=== PATIENT | male | born 1975 | race Caucasian/White ===

== ENCOUNTER 2019-01-14 19:03 | Observation (INO) | payer OTHER ==
[~2019-01-14] VITALS: Ht 165.1 cm; Wt 80.7 kg
[2019-01-14] MEDS ORDERED: morphine 4 MG/ML VIAL IV STA (21:10)
--- NOTE | 2019-01-14 22:03 | ERD ---
ER Documentation Chief Complaint Chief Complaint lft sd cp [id number], hx of heart attack 1.5 yrs ago. +stress test today. HPI 43-year-old male with a history of hypertension and NE in June 2017 presenting with complaints of chest pain that started around 6:45 PM today. He had a stress test done earlier this morning with Dr. Browne. He does not know the results of this test. During the stress test, however he was asymptomatic. He states that he started getting substernal chest pressure that radiated to his left shoulder with associated shortness of breath lasting a few minutes. Improved with nitroglycerin. No associated diaphoresis or vomiting. No dizziness, focal weakness or numbness. He is unable to tell me exactly why he had an NE at an early age. But he denies getting an angiogram or having stents. He states he is on Plavix and multiple other medications for hypertension, hyperlipidemia. ROS All systems reviewed and are negative except as per history of present illness. Medications Home Meds Reported Medications Pantoprazole* (Pantoprazole*) 40 Mg Tablet.dr, 40 MG PO DAILY, TAB 01/15/19 Losartan Potassium* (Losartan Potassium*) 100 Mg Tablet, 100 MG PO DAILY, TAB 01/15/19 Clopidogrel Bisulfate* (Clopidogrel Bisulfate*) 75 Mg Tablet, 75 MG PO DAILY, #30 TAB 01/15/19 Ranolazine* (Ranexa*) 500 Mg Tab.sr.12h, 500 MG PO Q12, TAB 01/15/19 Atorvastatin Calcium* (Atorvastatin Calcium*) 20 Mg Tablet, 20 MG PO QHS, #30 TAB 01/15/19 Carvedilol* (Carvedilol*) 6.25 Mg Tablet, 6.25 MG PO DAILY, #60 TAB 01/15/19 Naproxen* (Naproxen*) 500 Mg Tablet, 500 MG PO BID PRN for PAIN LEVEL 1-5, TAB 01/15/19 Nitroglycerin* (Nitrostat*) 0.4 Mg Tab.subl, 0.4 MG SL Q5MIN PRN for CHEST PAIN, BOTTLE 01/15/19 Aspirin* (Aspirin* EC) 81 Mg Tablet.dr, 81 MG PO DAILY, TAB 01/15/19 Allergies Allergies: Coded Allergies: No Known Drug Allergy (Verified Allergy, Unknown, 01/14/19) PMhx/Soc History of Surgery: No Anesthesia Reaction: No Hx Neurological Disorder: No Hx Respiratory Disorders: No Hx Cardiac Disorders: Yes (heart attack ) Hx Psychiatric Problems: No Hx Miscellaneous Medical Probl: No Hx Alcohol Use: Yes (socially) Hx Substance Use: No (Denies any history of substance abuse) Hx Tobacco Use: No Smoking Status: Never smoker FmHx Family History: No coronary disease Physical Exam Vitals Vital Signs Date Temp Pulse Resp B/P (MAP) Pulse Ox O2 O2 Flow FiO2 Time Delivery Rate 01/14/19 97.7 94 24 124/72 99 19:09 (89) Physical Exam Const: No acute distress, well-appearing, nontoxic, no diaphoresis Head: Atraumatic Eyes: Normal Conjunctiva ENT: Normal External Ears, Nose and Mouth. Neck: Full range of motion. No meningismus. No JVD Chest wall: Left parasternal chest wall tenderness, does not re-create pain Resp: Clear to auscultation bilaterally Cardio: Regular rate and rhythm, no murmurs. 2+ distal pulses in all 4 extremities Abd: Soft, non tender, non distended. Normal bowel sounds Skin: No petechiae or rashes Back: No midline or flank tenderness Ext: No cyanosis, or edema Neur: Awake and alert Psych: Normal Mood and Affect Result Diagram: 01/14/19205101/14/192051 Results 24 hrs Laboratory Tests Test 01/14/19 20:52 White Blood Count 5.0 10^3/ul Red Blood Count 4.28 10^6/ul Hemoglobin 12.5 g/dl Hematocrit 37.6 % Mean Corpuscular Volume 87.9 fl Mean Corpuscular Hemoglobin 29.2 pg Mean Corpuscular Hemoglobin Concent 33.2 g/dl Red Cell Distribution Width 13.7 % Platelet Count 312 10^3/UL Mean Platelet Volume 11.4 fl Immature Granulocytes % 0.200 % Neutrophils % 50.4 % Lymphocytes % 30.6 % Monocytes % 9.1 % Eosinophils % 9.1 % Basophils % 0.6 % Nucleated Red Blood Cells % 0.0 /100WBC Immature Granulocytes # 0.010 10^3/ul Neutrophils # 2.5 10^3/ul Lymphocytes # 1.5 10^3/ul Monocytes # 0.5 10^3/ul Eosinophils # 0.5 10^3/ul Basophils # 0.0 10^3/ul Nucleated Red Blood Cells # 0.0 10^3/ul Sodium Level 140 mmol/L Potassium Level 4.0 mmol/L Chloride Level 106 mmol/L Carbon Dioxide Level 25 mmol/L Anion Gap 9 Blood Urea Nitrogen 16 mg/dl Creatinine 0.92 mg/dl Est Glomerular Filtrat Rate mL/min > 60 mL/min Glucose Level 95 mg/dl Calcium Level 9.0 mg/dl Troponin I 0.064 ng/ml Current Medications Medications Dose Sig/Kathryn Start Time Status Last (Trade) Ordered Route PRN Stop Time Admin Dose Reason Admin Morphine 4 mg ONCE STAT 01/14/19 DC 01/14/19 Sulfate IV 21:10 21:24 (morphine) 01/14/19 21:11 1 tab ONCE ONCE 01/14/19 DC 01/14/19 Nitroglycerin SL 22:30 22:50 01/14/19 22:31 (Nitroglyceri n (Sl Tab) 0.4 Mg) IV Flush 3 ml PER 01/15/19 UNV (NS 3 ml) PROTOCOL IV 00:00 Ondansetron 4 mg Q6H PRN 01/15/19 UNV HCl (Zofran IV 00:00 Inj) NAUSEA/VOMITI NG Aspirin 81 mg DAILY PO 01/15/19 UNV (Aspirin) 09:00 1 tab Q5M PRN 01/15/19 UNV Nitroglycerin SL .CHEST 00:00 PAIN (Nitroglyceri n (Sl Tab) 0.4 Mg) 650 mg Q6H PRN 01/15/19 UNV Acetaminophen PO .PAIN 1-3 00:00 (Tylenol OR TEMP Tab) Enoxaparin 40 mg DAILY SC 01/15/19 UNV Sodium 09:00 (Lovenox) Albuterol/ 3 ml Q2H RESP 01/15/19 UNV Ipratropium THERAPY PRN 00:00 (Duoneb) HHN SHORTNESS OF BREATH Procedures/MDM EMERGENT LABS AND DIAGNOSTIC STUDIES: Lab Results above were reviewed and interpreted by me. CBC: no anemia or evidence of infection BMP: No evidence of electrolyte abnormality, renal failure, hypoglycemia, liver failure, or biliary obstruction Troponin within normal limits, not indicative of cardiac ischemia 12-lead EKG #1 was interpreted by Elba Perry MD: Normal Sinus Rhythm with ventricular Normal axis Inferior and lateral Q waves. No acute ST or T wave changes suggestive of acute ischemia or STEMI. EKG #2: Rate/Rhythm: Normal Sinus Rhythm QRS, ST, T-waves: Normal axis, inferior and lateral Q waves Impression: No evidence of ischemia or arrhythmia Radiology Results as interpreted by Radiology below were reviewed by Claudia Perry MD: Chest x-ray: No acute abnormalities Initial Nursing notes reviewed. Previous Medical Records requested via the Electronic Health Record. EMERGENCY DEPARTMENT COURSE / MEDICAL DECISION MAKING: Patient is presenting with substernal chest pain that radiates to his left shoulder. Vitals are stable. The results of his stress test from today are unknown at this time. However given his significant medical history for NE, although his EKG and troponin do not show any acute ischemia, I cannot rule out unstable angina. Doubt PE or aortic dissection. Doubt pericarditis. Patient will be admitted for further workup and cardiology consult. I tried to contact Dr. Browne myself but was unable to get a hold of him. Accepting Care Team: Current data and ongoing care discussed. Time: Time of admission Primary Provider: Dr. Landaverde Departure Diagnosis: Primary Impression: Chest pain Chest pain type: unspecified Qualified Codes: R07.9 - Chest pain, unspecified Condition: Fair JUWAN PERRY MD Jan 14, 2019 22:03
[2019-01-14] MEDS ORDERED: NITROGLYCERIN (SL) 0.4 MG TAB SL ONE (22:30)
[2019-01-15] VITALS (15 sets, daily range): BP systolic 110–127; BP diastolic 69–94; PULSE 60–97; RESP 16–20; Ht 165.1 cm; Wt 80.7 kg
[2019-01-15] MEDS ORDERED: ONDANSETRON 4 MG INJ IV PRN
[2019-01-15] MEDS ORDERED: ALBUTEROL/IPRATROPIUM (NEB) 3 ML AMP HHN PRN
[2019-01-15] MEDS ORDERED: NACL 0.9% 3 ML SYG IV SCH
[2019-01-15] MEDS ORDERED: LOSA100T15 PO (00:03)
[2019-01-15] MEDS ORDERED: NITR0.4T39 SL (00:03)
[2019-01-15] MEDS ORDERED: CLOP75TA19 PO (00:03)
[2019-01-15] MEDS ORDERED: CARV6.2579 PO (00:03)
[2019-01-15] MEDS ORDERED: ATOR20TA38 PO (00:03)
[2019-01-15] MEDS ORDERED: ASPI-817 PO (00:03)
[2019-01-15] MEDS ORDERED: NAPR-688 PO (00:03)
[2019-01-15] MEDS ORDERED: RANO500T2 PO (00:03)
[2019-01-15] MEDS ORDERED: PANT40TA4 PO (00:03)
[2019-01-15] MEDS: NITROGLYCERIN (SL) 0.4 MG TAB SL PRN (01:01)
[2019-01-15] MEDS ORDERED: morphine 2 MG INJ IV STA (01:24)
--- NOTE | 2019-01-15 05:31 | HP ---
Date/Time of Note Date/Time of Note DATE: 01/15/19 TIME: 05:20 Assessment/Plan VTE Prophylaxis SCD applied (from Nsg): Yes Pharmacological prophylaxis: heparin Lines/Catheters IV Catheter Type (from Nrsg): Saline Lock Assessment/Plan Assessment/Plan 43-year-old male with a self-reported history of heart attack who presented com plaining of chest pain. On further questioning and on physical examination however, pain is mainly localized in the epigastric area. PLAN -Will rule out ACS -Patient follows up with Dr. Browne, will notify his [employer]. Patient reported having had a stress test in the office yesterday. He also reported a 2D echo a month ago in the office -Trend troponin -Supplemental oxygen. As needed nitro and morphine -Check A1c, fasting lipid and TSH in a.m. -Given location of pain (mainly in the epigastric area) and reported acid reflux symptoms as well as family history of gastric cancer, will place a GI consult Result Diagram: 01/14/19205101/14/192051 Results 24hrs Laboratory Tests Test 01/14/19 20:52 01/15/19 01:59 White Blood Count 5.0 Red Blood Count 4.28 L Hemoglobin 12.5 L Hematocrit 37.6 L Mean Corpuscular Volume 87.9 Mean Corpuscular Hemoglobin 29.2 Mean Corpuscular Hemoglobin Concent 33.2 Red Cell Distribution Width 13.7 Platelet Count 312 Mean Platelet Volume 11.4 H Immature Granulocytes % 0.200 Neutrophils % 50.4 Lymphocytes % 30.6 Monocytes % 9.1 Eosinophils % 9.1 H Basophils % 0.6 Nucleated Red Blood Cells % 0.0 Immature Granulocytes # 0.010 Neutrophils # 2.5 Lymphocytes # 1.5 Monocytes # 0.5 Eosinophils # 0.5 Basophils # 0.0 Nucleated Red Blood Cells # 0.0 Sodium Level 140 Potassium Level 4.0 Chloride Level 106 Carbon Dioxide Level 25 Anion Gap 9 Blood Urea Nitrogen 16 Creatinine 0.92 Est Glomerular Filtrat Rate mL/min > 60 Glucose Level 95 Calcium Level 9.0 Troponin I 0.064 0.050 Creatine Kinase 58 Creatine Kinase Index 2.3 Creatinine Kinase MB (Mass) 1.31 HPI/ROS Admit Date/Time Admit Date/Time Jan 14, 2019 at 23:30 Hx of Present Illness This is a 43-year-old male with a history of "heart attack"who presents the ER complaining of chest pain. He said he has been having frequent chest pain almost a monthly basis for quite some time now. He said in June 2017, attempted cardiac cath failed using his right arm. He said in July of last year, he had a cardiac cath through his groin. He said he was told there were no blockages. He follows up with Dr. Browne. He said he had a stress test in the office yesterday, but does not know the result. He was not told to come to the ER, but when his pain recurs, he decided to come to the ER for evaluation. On my examination, he actually points in the epigastric area. He said his pain usually occurs when he is lying on the supine position and after he eats. His pain is not exertional. He reports acid reflux symptoms. He also reported occasional shortness of breath. He said his mother and a brother of stomach cancer at the age of 53 and 39 respectively. He denied a history of EGD. When he presented to ER vitals were stable. EKG without ST-T wave abnormalities and first troponin is negative. PMH/Family/Social Past Medical History Medical History: other (See HPI) Medications Current Medications IV Flush (NS 3 ml) 3 ml PER PROTOCOL IV ; Start 01/15/19 at 00:00 Ondansetron HCl (Zofran Inj) 4 mg Q6H PRN IV NAUSEA/VOMITING; Start 01/15/19 at 00:00 Aspirin (Aspirin) 81 mg DAILY PO ; Start 01/15/19 at 09:00 Nitroglycerin (Nitroglycerin (Sl Tab) 0.4 Mg) 1 tab Q5M PRN SL .CHEST PAIN Last administered on 01/15/19at 01:01; Admin Dose 1 TAB; Start 01/15/19 at 00:00 Acetaminophen (Tylenol Tab) 650 mg Q6H PRN PO .PAIN 1-3 OR TEMP; Start 01/15/19 at 00:00 Enoxaparin Sodium (Lovenox) 40 mg DAILY SC ; Start 01/15/19 at 09:00 Albuterol/ Ipratropium (Duoneb) 3 ml Q2H RESP THERAPY PRN HHN SHORTNESS OF BREATH; Start 01/15/19 at 00:00 Coded Allergies: No Known Drug Allergy (Verified Allergy, Unknown, 2/25/19) Past Surgical History Past Surgical Hx: other (See HPI) Family History Significant Family History: other (Mother and brother of gastric cancer at the age of 53 and 39 respectively) Social History Alcohol Use: occasionally Smoking Status: Never smoker Drug Use: none Exam/Review of Systems Vital Signs Vitals Vital Signs Date Temp Pulse Resp B/P (MAP) Pulse Ox O2 O2 Flow FiO2 Time Delivery Rate 01/15/19 79 04:00 01/15/19 99 Nasal 01:40 Cannula 01/15/19 20 110/69 01:14 (83) 01/15/19 98.0 01:10 Exam Constitutional: alert, oriented, well developed Head: normocephalic, atraumatic Eyes: EOMI, PERRL Respiratory: clear to auscultation, normal air movement Cardiovascular: regular rate and rhythm, nl pulses Gastrointestinal: soft, non-tender Extremities: normal pulses FLOR LOONEY MD Jan 15, 2019 05:31
[2019-01-15] MEDS: ASPIRIN 81 MG TAB PO SCH (08:23)
[2019-01-15] MEDS: ENOXAPARIN 40 MG/0.4 ML SYG SC SCH (08:30)
--- NOTE | 2019-01-15 10:32 | CONS ---
Consultation Date/Type/Reason Admit Date/Time Jan 14, 2019 at 23:30 Type of Consult Cardiology Date/Time of Note DATE: 01/15/19 TIME: 10:30 Hx of Present Illness 43 yo with known CAD - had stress test day prior at 's office - presented last night with CP - did not r/in [place] - but noted to have inf Q-wabes with some dynamic changes in inferior leads. SPECT at office per report is EF 40-45% with fixed inf/lat defect. Can not r/o vasospasm - add anti-spasmotc now - will discuss with DR. Horvath if LHC is reasonable. Full note dictated. Past Medical History Home Meds Reported Medications Pantoprazole* (Pantoprazole*) 40 Mg Tablet.dr, 40 MG PO DAILY, TAB 01/15/19 Losartan Potassium* (Losartan Potassium*) 100 Mg Tablet, 100 MG PO DAILY, TAB 01/15/19 Clopidogrel Bisulfate* (Clopidogrel Bisulfate*) 75 Mg Tablet, 75 MG PO DAILY, #30 TAB 01/15/19 Ranolazine* (Ranexa*) 500 Mg Tab.sr.12h, 500 MG PO Q12, TAB 01/15/19 Atorvastatin Calcium* (Atorvastatin Calcium*) 20 Mg Tablet, 20 MG PO QHS, #30 TAB 01/15/19 Carvedilol* (Carvedilol*) 6.25 Mg Tablet, 6.25 MG PO DAILY, #60 TAB 01/15/19 Naproxen* (Naproxen*) 500 Mg Tablet, 500 MG PO BID PRN for PAIN LEVEL 1-5, TAB 01/15/19 Nitroglycerin* (Nitrostat*) 0.4 Mg Tab.subl, 0.4 MG SL Q5MIN PRN for CHEST PAIN, BOTTLE 01/15/19 Aspirin* (Aspirin* EC) 81 Mg Tablet.dr, 81 MG PO DAILY, TAB 01/15/19 Medications Current Medications IV Flush (NS 3 ml) 3 ml PER PROTOCOL IV ; Start 01/15/19 at 00:00 Ondansetron HCl (Zofran Inj) 4 mg Q6H PRN IV NAUSEA/VOMITING; Start 01/15/19 at 00:00 Aspirin (Aspirin) 81 mg DAILY PO ; Start 01/15/19 at 09:00 Nitroglycerin (Nitroglycerin (Sl Tab) 0.4 Mg) 1 tab Q5M PRN SL .CHEST PAIN Last administered on 01/15/19at 01:01; Admin Dose 1 TAB; Start 01/15/19 at 00:00 Acetaminophen (Tylenol Tab) 650 mg Q6H PRN PO .PAIN 1-3 OR TEMP; Start 01/15/19 at 00:00 Enoxaparin Sodium (Lovenox) 40 mg DAILY SC Last administered on 01/15/19at 08:30; Admin Dose 40 MG; Start 01/15/19 at 09:00 Albuterol/ Ipratropium (Duoneb) 3 ml Q2H RESP THERAPY PRN HHN SHORTNESS OF BREATH; Start 01/15/19 at 00:00 Allergies: Coded Allergies: No Known Drug Allergies (Verified Allergy, Unknown, 01/15/19) Past Surgical History Past Surgical Hx: other (See HPI) Social History Alcohol Use: occasionally Smoking Status: Never smoker Drug Use: none Exam/Review of Systems Vital Signs Vitals Vital Signs Date Temp Pulse Resp B/P (MAP) Pulse Ox O2 O2 Flow FiO2 Time Delivery Rate 01/15/19 76 08:01 01/15/19 Nasal 07:42 Cannula 01/15/19 97.5 16 127/90 97 07:36 (102) Intake and Output 01/14/19 01/14/19 01/15/19 1515:00 23:00 07:00 IntakeIntake Total 550 ml BalanceBalance 550 ml Labs Result Diagram: 01/15/19 0606 01/15/19 0606 Results 24hrs Laboratory Tests Test 01/14/19 20:52 01/15/19 01:59 01/15/19 06:06 White Blood Count 5.0 4.0 L Red Blood Count 4.28 L 4.32 L Hemoglobin 12.5 L 12.5 L Hematocrit 37.6 L 38.1 L Mean Corpuscular Volume 87.9 88.2 Mean Corpuscular Hemoglobin 29.2 28.9 L Mean Corpuscular Hemoglobin Concent 33.2 32.8 Red Cell Distribution Width 13.7 13.4 Platelet Count 312 299 Mean Platelet Volume 11.4 H 10.3 Immature Granulocytes % 0.200 0.500 H Neutrophils % 50.4 36.5 L Lymphocytes % 30.6 43.3 Monocytes % 9.1 9.3 Eosinophils % 9.1 H 9.6 H Basophils % 0.6 0.8 Nucleated Red Blood Cells % 0.0 0.0 Immature Granulocytes # 0.010 0.020 Neutrophils # 2.5 1.5 L Lymphocytes # 1.5 1.7 Monocytes # 0.5 0.4 Eosinophils # 0.5 0.4 Basophils # 0.0 0.0 Nucleated Red Blood Cells # 0.0 0.0 Sodium Level 140 139 Potassium Level 4.0 4.4 Chloride Level 106 107 Carbon Dioxide Level 25 23 Anion Gap 9 9 Blood Urea Nitrogen 16 17 Creatinine 0.92 0.83 Est Glomerular Filtrat Rate mL/min > 60 > 60 Glucose Level 95 91 Calcium Level 9.0 9.0 Troponin I 0.064 0.050 0.043 Creatine Kinase 58 54 Creatine Kinase Index 2.3 2.2 Creatinine Kinase MB (Mass) 1.31 1.17 Hemoglobin A1c 5.3 Magnesium Level 2.0 Total Bilirubin 0.1 L Direct Bilirubin 0.00 Indirect Bilirubin 0.1 Aspartate Amino Transf (AST/SGOT) 28 Alanine Aminotransferase (ALT/SGPT) 24 Alkaline Phosphatase 56 Total Protein 6.3 Albumin 3.4 Globulin 2.90 Albumin/Globulin Ratio 1.17 Triglycerides Level 248 H Cholesterol Level 155 LDL Cholesterol, Calculated 65 HDL Cholesterol 40 Cholesterol/HDL Ratio 3.8 Thyroid Stimulating Hormone (TSH) 2.630 Medications Medications Current Medications IV Flush (NS 3 ml) 3 ml PER PROTOCOL IV ; Start 01/15/19 at 00:00 Ondansetron HCl (Zofran Inj) 4 mg Q6H PRN IV NAUSEA/VOMITING; Start 01/15/19 at 00:00 Aspirin (Aspirin) 81 mg DAILY PO ; Start 01/15/19 at 09:00 Nitroglycerin (Nitroglycerin (Sl Tab) 0.4 Mg) 1 tab Q5M PRN SL .CHEST PAIN Last administered on 01/15/19at 01:01; Admin Dose 1 TAB; Start 01/15/19 at 00:00 Acetaminophen (Tylenol Tab) 650 mg Q6H PRN PO .PAIN 1-3 OR TEMP; Start 01/15/19 at 00:00 Enoxaparin Sodium (Lovenox) 40 mg DAILY SC Last administered on 01/15/19at 08:30; Admin Dose 40 MG; Start 01/15/19 at 09:00 Albuterol/ Ipratropium (Duoneb) 3 ml Q2H RESP THERAPY PRN HHN SHORTNESS OF BREATH; Start 01/15/19 at 00:00 VANGIE ROBBINS MD Jan 15, 2019 10:32
[2019-01-15] MEDS: ISOSORBIDE DINITRATE 20 MG TAB PO SCH ×2 (12:36→21:48)
[2019-01-15] MEDS: morphine 2 MG INJ IV PRN ×2 (15:47→22:02)
--- NOTE | 2019-01-15 16:13 | PN ---
Date/Time of Note Date/Time of Note DATE: 01/15/19 TIME: 16:11 Assessment/Plan VTE Prophylaxis Risk score (from Nsg)>0 risk: 0 Pharmacological prophylaxis: LMWH Lines/Catheters IV Catheter Type (from Nrsg): Saline Lock Assessment/Plan Hospital Course 1. Chest pain ACS at this time but may require left heart cath Recent stress test showed an EF of 40-45% with fixed inferior/lateral defect, possible vasospasm Cardiology consultation appreciated, started on Isordil, patient may require left heart cath Continue aspirin Prophylaxis: Lovenox Result Diagram: 01/15/19 0606 01/15/19 0606 Results 24hrs Laboratory Tests Test 01/14/19 20:52 01/15/19 01:59 01/15/19 06:06 White Blood Count 5.0 4.0 L Red Blood Count 4.28 L 4.32 L Hemoglobin 12.5 L 12.5 L Hematocrit 37.6 L 38.1 L Mean Corpuscular Volume 87.9 88.2 Mean Corpuscular Hemoglobin 29.2 28.9 L Mean Corpuscular Hemoglobin Concent 33.2 32.8 Red Cell Distribution Width 13.7 13.4 Platelet Count 312 299 Mean Platelet Volume 11.4 H 10.3 Immature Granulocytes % 0.200 0.500 H Neutrophils % 50.4 36.5 L Lymphocytes % 30.6 43.3 Monocytes % 9.1 9.3 Eosinophils % 9.1 H 9.6 H Basophils % 0.6 0.8 Nucleated Red Blood Cells % 0.0 0.0 Immature Granulocytes # 0.010 0.020 Neutrophils # 2.5 1.5 L Lymphocytes # 1.5 1.7 Monocytes # 0.5 0.4 Eosinophils # 0.5 0.4 Basophils # 0.0 0.0 Nucleated Red Blood Cells # 0.0 0.0 Sodium Level 140 139 Potassium Level 4.0 4.4 Chloride Level 106 107 Carbon Dioxide Level 25 23 Anion Gap 9 9 Blood Urea Nitrogen 16 17 Creatinine 0.92 0.83 Est Glomerular Filtrat Rate mL/min > 60 > 60 Glucose Level 95 91 Calcium Level 9.0 9.0 Troponin I 0.064 0.050 0.043 Creatine Kinase 58 54 Creatine Kinase Index 2.3 2.2 Creatinine Kinase MB (Mass) 1.31 1.17 Hemoglobin A1c 5.3 Magnesium Level 2.0 Total Bilirubin 0.1 L Direct Bilirubin 0.00 Indirect Bilirubin 0.1 Aspartate Amino Transf (AST/SGOT) 28 Alanine Aminotransferase (ALT/SGPT) 24 Alkaline Phosphatase 56 Total Protein 6.3 Albumin 3.4 Globulin 2.90 Albumin/Globulin Ratio 1.17 Triglycerides Level 248 H Cholesterol Level 155 LDL Cholesterol, Calculated 65 HDL Cholesterol 40 Cholesterol/HDL Ratio 3.8 Thyroid Stimulating Hormone (TSH) 2.630 Subjective 24 Hr Interval Summary Cardiovascular: chest pain Exam/Review of Systems Exam Vitals Vital Signs Date Temp Pulse Resp B/P (MAP) Pulse Ox O2 O2 Flow FiO2 Time Delivery Rate 01/15/19 97.9 90 16 112/73 97 15:22 (86) 01/15/19 Nasal 07:42 Cannula Intake and Output 01/14/19 01/14/19 01/15/19 1515:00 23:00 07:00 IntakeIntake Total 550 ml BalanceBalance 550 ml Constitutional: alert, oriented Respiratory: clear to auscultation Cardiovascular: regular rate and rhythm Gastrointestinal: soft; No distended Musculoskeletal: nl extremities to inspection Results Results 24hrs Laboratory Tests Test 01/14/19 20:52 01/15/19 01:59 01/15/19 06:06 White Blood Count 5.0 4.0 L Red Blood Count 4.28 L 4.32 L Hemoglobin 12.5 L 12.5 L Hematocrit 37.6 L 38.1 L Mean Corpuscular Volume 87.9 88.2 Mean Corpuscular Hemoglobin 29.2 28.9 L Mean Corpuscular Hemoglobin Concent 33.2 32.8 Red Cell Distribution Width 13.7 13.4 Platelet Count 312 299 Mean Platelet Volume 11.4 H 10.3 Immature Granulocytes % 0.200 0.500 H Neutrophils % 50.4 36.5 L Lymphocytes % 30.6 43.3 Monocytes % 9.1 9.3 Eosinophils % 9.1 H 9.6 H Basophils % 0.6 0.8 Nucleated Red Blood Cells % 0.0 0.0 Immature Granulocytes # 0.010 0.020 Neutrophils # 2.5 1.5 L Lymphocytes # 1.5 1.7 Monocytes # 0.5 0.4 Eosinophils # 0.5 0.4 Basophils # 0.0 0.0 Nucleated Red Blood Cells # 0.0 0.0 Sodium Level 140 139 Potassium Level 4.0 4.4 Chloride Level 106 107 Carbon Dioxide Level 25 23 Anion Gap 9 9 Blood Urea Nitrogen 16 17 Creatinine 0.92 0.83 Est Glomerular Filtrat Rate mL/min > 60 > 60 Glucose Level 95 91 Calcium Level 9.0 9.0 Troponin I 0.064 0.050 0.043 Creatine Kinase 58 54 Creatine Kinase Index 2.3 2.2 Creatinine Kinase MB (Mass) 1.31 1.17 Hemoglobin A1c 5.3 Magnesium Level 2.0 Total Bilirubin 0.1 L Direct Bilirubin 0.00 Indirect Bilirubin 0.1 Aspartate Amino Transf (AST/SGOT) 28 Alanine Aminotransferase (ALT/SGPT) 24 Alkaline Phosphatase 56 Total Protein 6.3 Albumin 3.4 Globulin 2.90 Albumin/Globulin Ratio 1.17 Triglycerides Level 248 H Cholesterol Level 155 LDL Cholesterol, Calculated 65 HDL Cholesterol 40 Cholesterol/HDL Ratio 3.8 Thyroid Stimulating Hormone (TSH) 2.630 Medications Medication Current Medications IV Flush (NS 3 ml) 3 ml PER PROTOCOL IV ; Start 01/15/19 at 00:00 Ondansetron HCl (Zofran Inj) 4 mg Q6H PRN IV NAUSEA/VOMITING; Start 01/15/19 at 00:00 Aspirin (Aspirin) 81 mg DAILY PO ; Start 01/15/19 at 09:00 Nitroglycerin (Nitroglycerin (Sl Tab) 0.4 Mg) 1 tab Q5M PRN SL .CHEST PAIN Last administered on 01/15/19at 01:01; Admin Dose 1 TAB; Start 01/15/19 at 00:00 Acetaminophen (Tylenol Tab) 650 mg Q6H PRN PO .PAIN 1-3 OR TEMP; Start 01/15/19 at 00:00 Enoxaparin Sodium (Lovenox) 40 mg DAILY SC Last administered on 01/15/19at 08:30; Admin Dose 40 MG; Start 01/15/19 at 09:00 Albuterol/ Ipratropium (Duoneb) 3 ml Q2H RESP THERAPY PRN HHN SHORTNESS OF BREATH; Start 01/15/19 at 00:00 Isosorbide Dinitrate (Isordil) 20 mg TID PO Last administered on 01/15/19at 12:36; Admin Dose 20 MG; Start 01/15/19 at 13:00 Morphine Sulfate (morphine) 2 mg Q4H PRN IV SEVERE PAIN LEVEL 7-10 Last administered on 01/15/19at 15:47; Admin Dose 2 MG; Start 01/15/19 at 11:30 ANGELY TOWNSEND Jan 15, 2019 16:13
[2019-01-16] VITALS (12 sets, daily range): BP systolic 111–127; BP diastolic 56–84; PULSE 67–95; RESP 16–18
[2019-01-16] MEDS: ACETAMINOPHEN 325 MG TAB PO PRN ×3 (06:11→18:40)
--- NOTE | 2019-01-16 06:49 | CONS ---
DATE OF ADMISSION: 01/14/2019 DATE OF CONSULTATION: 01/15/2019 TYPE OF CONSULTATION: Cardiology. REFERRING PHYSICIAN: Flor Looney MD REASON FOR EVALUATION: Precordial chest pain. HISTORY OF PRESENT ILLNESS: Mr. Khan is a 43-year-old gentleman with a history of hypertension, dys lipidemia, history of coronary artery disease, prior history of left heart catheterization at [facility] per self-report last year, who comes to the hospital now for evaluation of precordial chest pain. Ac cording to the patient, he had a stress test in Dr. Melo's office yesterday. The patient does not r eport any chest pain at this particular second, but his EKG does shows inferior Q-waves with ST-T inv ersions. I called my office and we are going to try to review his stress test result shortly, but ot her than that, I think for now, conservative as patient did not rule in for acute myocardial in farction. If stress test is positive, will continue left heart catheterization. Other than that, pa in therapy would be noted. PAST MEDICAL HISTORY: Hypertension, dyslipidemia, history of premature coronary artery disease. The re is significant history of self-reported catheterization at [facility] last year. The patient said that "they couldn't open the vessel." ALLERGIES: No known drug allergies. SOCIAL HISTORY: The patient does not smoke, does not drink, does not use any drugs. FAMILY HISTORY: Negative for sudden cardiac or premature coronary artery disease. MEDICATIONS: The patient's home medications include: 1. Aspirin. 2. Ranexa 3. Pepcid. REVIEW OF SYSTEMS: CONSTITUTIONAL: No fevers, no chills, weight or changes in vision or hearing. CARDIAC: Chest pain reported now. RESPIRATORY: Short of breath. GASTROINTESTINAL: No nausea, vomiting. GENITOURINARY: No dysuria, hematuria. NEUROLOGIC: No focal deficits. HEMATOLOGIC: No easy bruising. PSYCHIATRIC: Unknown history of psychiatric illness. PHYSICAL EXAMINATION: VITAL SIGNS: Currently his temperature is 97.6, heart rate is 87, blood pressure 123/87. GENERAL: He is a well-nourished gentleman in no acute distress. When I walked into the room to see him, he appeared to be sleeping comfortably but when I woke him up to talk to him he reported significant chest pain. NECK: Supple. JVD 6-7 cm. There is no lymphadenopathy. HEART: Soft holosystolic murmur. PMI is minimally displaced. There is no S3. LUNGS: Coarse to base. ABDOMEN: Distended, bowel sounds are present. EXTREMITIES: No clubbing, cyanosis. Trace edema. LABORATORY DATA: negative at 0.01. ASSESSMENT: The patient does report of precordial chest pain. He has a known history of suspected c oronary artery disease. Patient had a stress test yesterday at Dr. Melo's office. I called the off ice and we will try to facilitate results shortly. If test is abnormal patient might require further reevaluation with angiogram. Other than that, conservative therapy is expected 1. Hypertension. Blood pressure well controlled now. Continue to monitor. 2. Dyslipidemia. Patient is on . 3. Abnormal electrocardiogram. Patient abnormal EKG. Inferior Q-waves are noted. Also, nonspecifi c ST-T changes. I think at this particular point we will see if patient had a recent 2D echo and mon itor closely. It does appear that on initial EKG there was some inferior ST-T elevations. However, this is difficult to tell in a setting of a fairly abnormal EKG at baseline and as such, possibility of vasospasm cannot be ruled out. I think for now, will monitor closely. Will monitor troponins. W ill obtain results of the stress test. I would like to thank Dr. Looney for referring this patient for my evaluation. Dictated By: VANGIE ROBBINS MD ML/NTS Conf#: [id number] DID#: [id number] CC: FLOR LOONEY MD;*EndCC*
[2019-01-16] MEDS: ASPIRIN 81 MG TAB PO SCH (08:47)
[2019-01-16] MEDS: ISOSORBIDE DINITRATE 20 MG TAB PO SCH ×3 (08:48→20:17)
[2019-01-16] MEDS: morphine 2 MG INJ IV PRN ×3 (08:49→20:18)
[2019-01-16] MEDS: ENOXAPARIN 40 MG/0.4 ML SYG SC SCH (09:34)
--- NOTE | 2019-01-16 14:58 | PN ---
Date/Time of Note Date/Time of Note DATE: 01/16/19 TIME: 14:57 Assessment/Plan VTE Prophylaxis Risk score (from Ns)>0 risk: 6 SCD applied (from Nsg): Yes Pharmacological prophylaxis: LMWH Lines/Catheters IV Catheter Type (from Nrsg): Saline Lock Urinary Cath still in place: No Assessment/Plan Hospital Course 1. Chest pain ACS at this time but may require left heart cath Recent stress test showed an EF of 40-45% with fixed inferior/lateral defect, possible vasospasm Cardiology consultation appreciated, started on Isordil, patient may require left heart cath Continue aspirin Prophylaxis: Lovenox Result Diagram: 01/15/19 0606 01/15/19 0606 Subjective 24 Hr Interval Summary Constitutional: no complaints Exam/Review of Systems Exam Vitals Vital Signs Date Temp Pulse Resp B/P (MAP) Pulse Ox O2 O2 Flow FiO2 Time Delivery Rate 01/16/19 82 12:08 01/16/19 98.1 16 121/77 97 11:37 (92) 01/16/19 2.0 11:20 01/16/19 Nasal 02:05 Cannula Intake and Output 01/15/19 01/15/19 01/16/19 1515:00 23:00 07:00 IntakeIntake Total 800 ml 500 ml BalanceBalance 800 ml 500 ml Constitutional: alert, oriented Respiratory: clear to auscultation Cardiovascular: regular rate and rhythm Gastrointestinal: soft; No distended Musculoskeletal: nl extremities to inspection Medications Medication Current Medications IV Flush (NS 3 ml) 3 ml PER PROTOCOL IV ; Start 01/15/19 at 00:00 Ondansetron HCl (Zofran Inj) 4 mg Q6H PRN IV NAUSEA/VOMITING; Start 01/15/19 at 00:00 Aspirin (Aspirin) 81 mg DAILY PO Last administered on 01/16/19at 08:47; Admin Dose 81 MG; Start 01/15/19 at 09:00 Nitroglycerin (Nitroglycerin (Sl Tab) 0.4 Mg) 1 tab Q5M PRN SL .CHEST PAIN Last administered on 01/15/19at 01:01; Admin Dose 1 TAB; Start 01/15/19 at 00:00 Acetaminophen (Tylenol Tab) 650 mg Q6H PRN PO .PAIN 1-3 OR TEMP Last administered on 01/16/19at 12:36; Admin Dose 650 MG; Start 01/15/19 at 00:00 Enoxaparin Sodium (Lovenox) 40 mg DAILY SC Last administered on 01/16/19 09:34; Admin Dose 40 MG; Start 01/15/19 at 09:00 Albuterol/ Ipratropium (Duoneb) 3 ml Q2H RESP THERAPY PRN HHN SHORTNESS OF BREATH; Start 01/15/19 at 00:00 Isosorbide Dinitrate (Isordil) 20 mg TID PO Last administered on 01/16/19 12:37; Admin Dose 20 MG; Start 01/15/19 at 13:00 Morphine Sulfate (morphine) 2 mg Q4H PRN IV SEVERE PAIN LEVEL 7-10 Last administered on 01/16/19 08:49; Admin Dose 2 MG; Start 01/15/19 at 11:30 ANGELY TOWNSEND Jan 16, 2019 14:58
--- NOTE | 2019-01-16 15:35 | CONS ---
Assessment/Plan Assessment/Plan Hospital Course (Demo Recall) IMP: 1.Chest pain-fixed inferolateral defect . no ischemia by stress 01/14/19 2.abnl ecg 3.HTN 4.HL Recc: -Tele -serial ecg's -Continue current asa -Contineu oral nitrates -for ongoing chest pain consider CTA-inpatient versus outpatient Consultation Date/Type/Reason Admit Date/Time Jan 14, 2019 at 23:30 Initial Consult Date 01/15/19 Type of Consult Cardiology Reason for Consultation Chest pain Requesting Provider: ANGELY TOWNSEND Date/Time of Note DATE: 01/16/19 TIME: 15:27 Exam/Review of Systems Vital Signs Vitals Vital Signs Date Temp Pulse Resp B/P (MAP) Pulse Ox O2 O2 Flow FiO2 Time Delivery Rate 01/16/19 98.1 86 16 125/56 97 15:11 (79) 01/16/19 2.0 11:20 01/16/19 Nasal 02:05 Cannula Intake and Output 01/15/19 01/15/19 01/16/19 1515:00 23:00 07:00 IntakeIntake Total 800 ml 500 ml BalanceBalance 800 ml 500 ml Exam Exam Review of Systems: CONSTITUTIONAL: No fevers, chills. PULMONARY: No sob CARDIOVASCULAR: No chest pain/palpitations GASTROINTESTINAL: No nausea/vomiting. GENITOURINARY: No hematuria/dysuria. MUSCULOSKELETAL: No myagias/arthalgias. PSYCHIATRIC: The patient denies depression. NEUROLOGIC: No weakness Constitutional: alert Psych: no complaints Head: normocephalic ENMT: mucosa pink and moist Neck: supple, jvd Respiratory: diminished breath sounds Cardiovascular: regular rate and rhythm Gastrointestinal: soft, non-tender Musculoskeletal: muscle tone Extremities: edema (none) Neurological: other (No focal deficits) Labs Result Diagram: 01/15/1960501/15/19605 Medications Medications Current Medications IV Flush (NS 3 ml) 3 ml PER PROTOCOL IV ; Start 01/15/19 at 00:00 Ondansetron HCl (Zofran Inj) 4 mg Q6H PRN IV NAUSEA/VOMITING; Start 01/15/19 at 00:00 Aspirin (Aspirin) 81 mg DAILY PO Last administered on 01/16/19at 08:47; Admin Dose 81 MG; Start 01/15/19 at 09:00 Nitroglycerin (Nitroglycerin (Sl Tab) 0.4 Mg) 1 tab Q5M PRN SL .CHEST PAIN Last administered on 01/15/19 01:01; Admin Dose 1 TAB; Start 01/15/19 at 00:00 Acetaminophen (Tylenol Tab) 650 mg Q6H PRN PO .PAIN 1-3 OR TEMP Last administered on 01/16/19 12:36; Admin Dose 650 MG; Start 01/15/19 at 00:00 Enoxaparin Sodium (Lovenox) 40 mg DAILY SC Last administered on 01/16/19 09:34; Admin Dose 40 MG; Start 01/15/19 at 09:00 Albuterol/ Ipratropium (Duoneb) 3 ml Q2H RESP THERAPY PRN HHN SHORTNESS OF BREATH; Start 01/15/19 at 00:00 Isosorbide Dinitrate (Isordil) 20 mg TID PO Last administered on 01/16/19 12:37; Admin Dose 20 MG; Start 01/15/19 at 13:00 Morphine Sulfate (morphine) 2 mg Q4H PRN IV SEVERE PAIN LEVEL 7-10 Last administered on 01/16/19 15:25; Admin Dose 2 MG; Start 01/15/19 at 11:30 WADE VELAZQUEZ Jan 16, 2019 15:35
[2019-01-16] MEDS: METOPROLOL 25 MG TAB PO SCH (20:17)
[2019-01-17] VITALS (8 sets, daily range): BP systolic 106–127; BP diastolic 66–89; PULSE 67–81; RESP 16–20
[2019-01-17] MEDS: NITROGLYCERIN (SL) 0.4 MG TAB SL PRN (08:06)
[2019-01-17] MEDS: ASPIRIN 81 MG TAB PO SCH (08:17)
[2019-01-17] MEDS: ISOSORBIDE DINITRATE 20 MG TAB PO SCH ×2 (08:18→12:41)
[2019-01-17] MEDS: METOPROLOL 25 MG TAB PO SCH (08:18)
[2019-01-17] MEDS: ENOXAPARIN 40 MG/0.4 ML SYG SC SCH (08:20)
[2019-01-17] MEDS: METOPROLOL 5 MG INJ IV PRN ×2 (11:35→12:39)
[2019-01-17] MEDS: morphine 2 MG INJ IV PRN (11:54)
[2019-01-17] MEDS ORDERED: METOPROLOL (XL) 100 MG TAB PO ONE (13:30)
--- NOTE | 2019-01-17 14:08 | CONS ---
Assessment/Plan Assessment/Plan Hospital Course (Demo Recall) IMP: 1.Chest pain-fixed inferolateral defect . no ischemia by stress 01/14/19 but ongoing chest pain 2.abnl ecg 3.HTN 4.HL Recc: -Tele -serial ecg's -Continue current asa -Contineu oral nitrates -Continu BB -Pnding cardiac CTA today and if no sig obstructive cad then ok for d/c from cardiac standpoint Consultation Date/Type/Reason Admit Date/Time Jan 14, 2019 at 23:30 Initial Consult Date 01/15/19 Type of Consult Cardiology Reason for Consultation chest pain/cad Requesting Provider: ANGELY TOWNSEND Date/Time of Note DATE: 01/17/19 TIME: 14:06 Exam/Review of Systems Vital Signs Vitals Vital Signs Date Temp Pulse Resp B/P (MAP) Pulse Ox O2 O2 Flow FiO2 Time Delivery Rate 01/17/19 75 12:02 01/17/19 98.1 20 110/73 97 Nasal 11:39 (85) Cannula 01/17/19 2.0 09:30 Intake and Output 01/16/19 01/16/19 01/17/19 1515:00 23:00 07:00 IntakeIntake Total 950 ml 400 ml BalanceBalance 950 ml 400 ml Exam Exam Review of Systems: CONSTITUTIONAL: No fevers, chills. PULMONARY: No sob CARDIOVASCULAR: No chest pain/palpitations GASTROINTESTINAL: No nausea/vomiting. GENITOURINARY: No hematuria/dysuria. MUSCULOSKELETAL: No myagias/arthalgias. PSYCHIATRIC: The patient denies depression. NEUROLOGIC: No weakness Constitutional: alert Psych: no complaints Head: normocephalic ENMT: mucosa pink and moist Neck: supple, jvd (9 cm water) Respiratory: clear to auscultation Cardiovascular: regular rate and rhythm Gastrointestinal: soft, non-tender Musculoskeletal: muscle tone (normal) Extremities: edema (none) Neurological: other (No focal deficits) Labs Result Diagram: 01/15/1960501/15/19605 Medications Medications Current Medications IV Flush (NS 3 ml) 3 ml PER PROTOCOL IV ; Start 01/15/19 at 00:00 Ondansetron HCl (Zofran Inj) 4 mg Q6H PRN IV NAUSEA/VOMITING; Start 01/15/19 at 00:00 Aspirin (Aspirin) 81 mg DAILY PO Last administered on 01/17/19 08:17; Admin Dose 81 MG; Start 01/15/19 at 09:00 Nitroglycerin (Nitroglycerin (Sl Tab) 0.4 Mg) 1 tab Q5M PRN SL .CHEST PAIN Last administered on 01/17/19 08:06; Admin Dose 1 TAB; Start 01/15/19 at 00:00 Acetaminophen (Tylenol Tab) 650 mg Q6H PRN PO .PAIN 1-3 OR TEMP Last administered on 01/16/19 18:40; Admin Dose 650 MG; Start 01/15/19 at 00:00 Enoxaparin Sodium (Lovenox) 40 mg DAILY SC Last administered on 01/17/19 08:20 ; Admin Dose 40 MG; Start 01/15/19 at 09:00 Albuterol/ Ipratropium (Duoneb) 3 ml Q2H RESP THERAPY PRN HHN SHORTNESS OF BREATH; Start 01/15/19 at 00:00 Isosorbide Dinitrate (Isordil) 20 mg TID PO Last administered on 01/17/19 12:41; Admin Dose 20 MG; Start 01/15/19 at 13:00 Morphine Sulfate (morphine) 2 mg Q4H PRN IV SEVERE PAIN LEVEL 7-10 Last administered on 01/17/19 11:54; Admin Dose 2 MG; Start 01/15/19 at 11:30 Metoprolol Tartrate (Lopressor) 25 mg BID PO Last administered on 01/17/19 08:18; Admin Dose 25 MG; Start 01/16/19 at 21:00 Metoprolol Tartrate (Lopressor) 5 mg Q30MIN PRN IV HR>60 for cardiac CTA only Last administered on 01/17/19 12:39; Admin Dose 5 MG; Start 01/16/19 at 16:00 AWDE VELAZQUEZ Jan 17, 2019 14:08
[2019-01-17] MEDS ORDERED: DILTIAZEM 25 MG INJ IV PRN (14:30)
[2019-01-17] MEDS ORDERED: DILTIAZEM 25 MG INJ IV ONE (14:30)
--- NOTE | 2019-01-17 15:24 | PDOCDIS ---
Discharge Instructions CONDITION [id number] Patient Condition: [id number] Good HOME CARE INSTRUCTIONS: [id number] Diet Instructions: [id number] Modified Fat ACTIVITY: [id number] Activity Restrictions: [id number] No Restrictions FOLLOW UP/APPOINTMENTS Follow-up Plan FOLLOW UP WITH YOUR PCP AND CHEMICAL PROCESS PROJECT ENGINEER IN 1-2 WEEKS ANGELY TOWNSEND Jan 17, 2019 15:24
--- NOTE | 2019-01-17 16:54 | DS ---
Date/Time of Note Date/Time of Note DATE: 01/17/19 TIME: 16:51 Discharge Summary Admission/Discharge Info Admit Date/Time Jan 14, 2019 at 23:30 Discharge Date/Time Jan 17, 2019 at 16:26 Discharge Diagnosis 1. Chest pain ACS at this time but may require left heart cath Recent stress test showed an EF of 40-45% with fixed inferior/lateral defect, possible vasospasm Cardiology consultation appreciated, patient had a CT coronary artery ordered but patient refused to have test done Patient did have a recent cardiac cath at an outside facility Continue cardiac meds Follow-up with cardiology as an outpatient Patient Condition: Good Hospital Course Patient is a 43-year-old male with a self-reported history of MN who came in presenting with chest pain. Patient did have a recent stress test with his dye machine tender as an outpatient, stress test showed an EF of 40-45% with a fixed inferior/lateral defect. Patient also recently had a cardiac cath in outside facility. Patient was seen by cardiology and recommendations was for CT of his coronaries, patient refused to have the test done. Patient was ruled out for ACS and is follow-up with his dye machine tender as an outpatient. On the day of discharge patient's vitals, labs and physical exam are stable. Home Meds Reported Medications Pantoprazole* (Pantoprazole*) 40 Mg Tablet.dr, 40 MG PO DAILY, TAB 01/15/19 Losartan Potassium* (Losartan Potassium*) 100 Mg Tablet, 100 MG PO DAILY, TAB 01/15/19 Clopidogrel Bisulfate* (Clopidogrel Bisulfate*) 75 Mg Tablet, 75 MG PO DAILY, #30 TAB 01/15/19 Ranolazine* (Ranexa*) 500 Mg Tab.sr.12h, 500 MG PO Q12, TAB 01/15/19 Atorvastatin Calcium* (Atorvastatin Calcium*) 20 Mg Tablet, 20 MG PO QHS, #30 TAB 01/15/19 Carvedilol* (Carvedilol*) 6.25 Mg Tablet, 6.25 MG PO DAILY, #60 TAB 01/15/19 Naproxen* (Naproxen*) 500 Mg Tablet, 500 MG PO BID PRN for PAIN LEVEL 1-5, TAB 01/15/19 Nitroglycerin* (Nitrostat*) 0.4 Mg Tab.subl, 0.4 MG SL Q5MIN PRN for CHEST PAIN, BOTTLE 01/15/19 Aspirin* (Aspirin* EC) 81 Mg Tablet., 81 MG PO DAILY, TAB 01/15/19 Follow-up Plan FOLLOW UP WITH YOUR PCP AND OFFSET PRESS ASSISTANT IN 1-2 WEEKS Primary Care Provider Not On Staff Doctor Time spent on discharge: > 30 minutes ANGELY TOWNSEND Jan 17, 2019 16:54
--- NOTE | 2019-01-18 13:36 | RADRPT ---
Vent Rate: 70 bpm RR Interval: 0 msec ID Interval: 168 msec QRS Duration: 98 msec QT Interval: 392 msec QTC Interval: 423 msec P-R-T [place]: 50 - 38 - -39 degrees Normal sinus rhythm Lateral infarct , age undetermined Possible Inferior infarct , age undetermined Abnormal ECG Electronically Signed By: Dustin Horvath
== END 2019-01-17 16:26 | disposition home or self-care (01) ==
LOC: E/R 19:03 → TEL 23:30
PROVIDERS: ADMIT Internal Medicine; ATTEND Internal Medicine
DX: R07.9 Chest pain, unspecified (principal); I25.10 Atherosclerotic heart disease of native coronary artery without angina pectoris; I25.2 Old myocardial infarction; I10 Essential (primary) hypertension; E78.5 Hyperlipidemia, unspecified; R94.31 Abnormal electrocardiogram [ECG] [EKG]; Z79.82 Long term (current) use of aspirin
CPT/HCPCS: 36415; 71045; 80048; 80053; 80061; 82550; 82553; 83036; 83735; 84443; 84484; 85025; 93005; 96374; J1650; J2270; Z7500; Z7502; Z7610; G0378

== ENCOUNTER 2019-06-27 13:48 | Emergency (ER) | payer OTHER ==
[~2019-06-27] VITALS: Ht 165.1 cm; Wt 77.3 kg
[~2019-06-27 13:48] MED LIST: ACET325T33 PO; ASPI-817 PO; ATOR20TA38 PO; CARV6.2579 PO; CLOP75TA19 PO; IBUP-1542 PO; LOSA100T15 PO; NAPR-688 PO; NITR0.4T39 SL; PANT40TA4 PO; RANO500T2 PO
[2019-06-27 13:51] VITALS: Ht 165.1 cm; Wt 77.3 kg
[2019-06-27] MEDS ORDERED: NITROGLYCERIN 2% 1 GM OINT PKT TD STA (13:56)
[2019-06-27] MEDS ORDERED: ASPIRIN 81 MG TAB PO STA (13:56)
[2019-06-27] MEDS ORDERED: SODIUM CHLORIDE 0.9% 1L BAG IV* STA (13:57)
[2019-06-27] MEDS ORDERED: NITROGLYCERIN (SL) 0.4 MG TAB SL PRN (14:00)
[2019-06-27] MEDS ORDERED: ACETAMINOPHEN 325 MG TAB PO ONE (14:00)
--- NOTE | 2019-06-27 16:19 | ERD ---
ER Documentation Chief Complaint Chief Complaint L sided CP rad to arm since 0600; 08/29 constant+reprod. hx ami, htn HPI Patient is a 43-year-old male with a history of coronary disease who presents with chest pain. He also has shortness of breath and feels weak. He had subjective fever and high blood pressure. He said "I was just not feeling well". He said the symptoms started on Monday. He went to an ER at [place] on Monday. He has taken his nitroglycerin. Upon review of old medical record the patient one previous visit to the ER in December 2018 with admission for chest pain. His primary doctor is Dr. Ley and his metal fabricator Dr. Browne. ROS All systems reviewed and are negative except as per history of present illness. Medications Home Meds Active Scripts Acetaminophen* (Tylenol*) 325 Mg Tablet, 2 TAB PO Q8 PRN for PAIN AND OR ELEVATED TEMP, #20 TAB Prov:JIMMY MEREDITH MD 06/27/19 Ibuprofen* (Motrin*) 600 Mg Tab, 600 MG PO Q8, #30 TAB Prov:JIMMY MEREDITH MD 06/27/19 Reported Medications Pantoprazole* (Pantoprazole*) 40 Mg Tablet.dr, 40 MG PO DAILY, TAB 01/15/19 Losartan Potassium* (Losartan Potassium*) 100 Mg Tablet, 100 MG PO DAILY, TAB 01/15/19 Clopidogrel Bisulfate* (Clopidogrel Bisulfate*) 75 Mg Tablet, 75 MG PO DAILY, #30 TAB 01/15/19 Ranolazine* (Ranexa*) 500 Mg Tab.sr.12h, 500 MG PO Q12, TAB 01/15/19 Atorvastatin Calcium* (Atorvastatin Calcium*) 20 Mg Tablet, 20 MG PO QHS, #30 TAB 01/15/19 Carvedilol* (Carvedilol*) 6.25 Mg Tablet, 6.25 MG PO DAILY, #60 TAB 01/15/19 Naproxen* (Naproxen*) 500 Mg Tablet, 500 MG PO BID PRN for PAIN LEVEL 1-5, TAB 01/15/19 Nitroglycerin* (Nitrostat*) 0.4 Mg Tab.subl, 0.4 MG SL Q5MIN PRN for CHEST PAIN, BOTTLE 01/15/19 Aspirin* (Aspirin* EC) 81 Mg Tablet.dr, 81 MG PO DAILY, TAB 01/15/19 Allergies Allergies: Coded Allergies: No Known Drug Allergies (Unverified Allergy, Unknown, 06/27/19) PMhx/Soc History of Surgery: No (angiogramsept, 2018) Anesthesia Reaction: No Hx Neurological Disorder: No Hx Respiratory Disorders: No Hx Cardiac Disorders: Yes (heart attack 2017) Hx Psychiatric Problems: No Hx Miscellaneous Medical Probl: No Hx Alcohol Use: Yes (5 beers/ weekend, last took was monday last week) Hx Substance Use: No Hx Tobacco Use: No Smoking Status: Never smoker FmHx Family History: coronary disease Physical Exam Vitals Vital Signs Date Temp Pulse Resp B/P (MAP) Pulse Ox O2 O2 Flow FiO2 Time Delivery Rate 06/27/19 98.9 89 18 120/78 99 Room Air 16:27 (92) 06/27/19 99.1 90 17 116/84 99 Room Air 15:41 (95) 06/27/19 100.4 14:32 06/27/19 100.4 106 26 140/80 99 13:51 (100) Physical Exam Const: No acute distress Head: Atraumatic Eyes: Normal Conjunctiva ENT: Normal External Ears, Nose and Mouth. Neck: Full range of motion. No meningismus. Resp: Clear to auscultation bilaterally Cardio: Regular rate and rhythm, no murmurs Abd: Soft, non tender, non distended. Normal bowel sounds Skin: No petechiae or rashes Back: No midline or flank tenderness Ext: No cyanosis, or edema Neur: Awake and alert Psych: Normal Mood and Affect Result Diagram: 06/27/19 1416 06/27/19 1416 Results 24 hrs Laboratory Tests Test 06/27/19 14:14 06/27/19 14:16 06/27/19 15:39 POC Venous Lactate 1.9 mmol/L White Blood Count 4.1 10^3/ul Red Blood Count 5.06 10^6/ul Hemoglobin 15.0 g/dl Hematocrit 44.3 % Mean Corpuscular Volume 87.5 fl Mean Corpuscular Hemoglobin 29.6 pg Mean Corpuscular 33.9 g/dl Hemoglobin Concent Red Cell Distribution Width 13.9 % Platelet Count 286 10^3/UL Mean Platelet Volume 9.8 fl Immature Granulocytes % 0.500 % Neutrophils % 65.6 % Lymphocytes % 20.2 % Monocytes % 11.2 % Eosinophils % 2.0 % Basophils % 0.5 % Nucleated Red Blood Cells % 0.0 /100WBC Immature Granulocytes # 0.020 10^3/ul Neutrophils # 2.7 10^3/ul Lymphocytes # 0.8 10^3/ul Monocytes # 0.5 10^3/ul Eosinophils # 0.1 10^3/ul Basophils # 0.0 10^3/ul Nucleated Red Blood Cells # 0.0 10^3/ul Prothrombin Time 13.7 Sec Prothrombin Time Ratio 1.1 INR International 1.04 Normalized Ratio Activated Partial Thromboplast 30.1 Sec Time D-Dimer 252.00 ng/ml D-Dimer Comment Sodium Level 139 mmol/L Potassium Level 3.9 mmol/L Chloride Level 104 mmol/L Carbon Dioxide Level 25 mmol/L Anion Gap 10 Blood Urea Nitrogen 13 mg/dl Creatinine 0.91 mg/dl Est Glomerular Filtrat > 60 mL/min Rate mL/min Glucose Level 86 mg/dl Calcium Level 9.8 mg/dl Total Bilirubin 0.7 mg/dl Direct Bilirubin 0.00 mg/dl Indirect Bilirubin 0.7 mg/dl Aspartate Amino Transf (AST/SGOT) 49 IU/L Alanine 107 IU/L Aminotransferase (ALT/SGPT) Alkaline Phosphatase 60 IU/L Troponin I < 0.012 ng/ml Total Protein 7.3 g/dl Albumin 4.3 g/dl Lipase 85 U/L Urine Color YELLOW Urine Clarity SLIGHTLY CLOUDY Urine pH 6.0 Urine Specific Tensed 1.019 Urine Ketones NEGATIVE mg/dL Urine Nitrite NEGATIVE mg/dL Urine Bilirubin NEGATIVE mg/dL Urine Urobilinogen NEGATIVE mg/dL Urine Leukocyte Esterase NEGATIVE Avery/ul Urine Microscopic RBC 1 /HPF Urine Microscopic WBC 1 /HPF Urine Hemoglobin NEGATIVE mg/dL Urine Glucose NEGATIVE mg/dL Urine Total Protein NEGATIVE mg/dl Current Medications Medications Dose Sig/Kathryn Start Time Status Last (Trade) Ordered Route PRN Stop Time Admin Dose Reason Admin Aspirin 162 mg ONCE STAT 06/27/19 DC 06/27/19 (Aspirin) PO 13:56 06/27/19 14:32 13:57 1 inch ONCE STAT 06/27/19 DC 06/27/19 Nitroglycerin TD 13:56 06/27/19 14:32 13:57 (Nitroglyceri n 2% Oint) 1 tab Q5M UP TO 3 06/27/19 DC Nitroglycerin DOSES PRN 14:00 06/27/19 SL .CHEST 16:32 (Nitroglyceri PAIN n (Sl Tab) 0.4 Mg) Sodium 2,320 ml BOLUS OVER 2 06/27/19 DC 06/27/19 Chloride HOURS STAT 13:57 06/27/19 14:32 (NS) IV* 13:58 650 mg ONCE ONCE 06/27/19 DC 06/27/19 Acetaminophen PO 14:00 06/27/19 14:32 (Tylenol 14:01 Tab) Procedures/MDM EKG read by me: Rate/Rhythm: Sinus tachycardia rate of 107 Intervals: Normal Impression: Sinus tachycardia Chest x-ray negative for pneumonia or pneumothorax per radiology. Patient is a 43-year-old male presents with multiple complaints. He has chest pain, shortness of breath, fevers, and high blood pressure. He was given Tylenol for fever. Laboratory studies were basically normal including a negative d-dimer. At this point I doubt acute coronary syndrome, pneumonia, pneumothorax, pulmonary embolism, or aortic dissection. The patient will be discharged home to follow closely with his primary doctor. He can return sooner for any worsening symptoms. He can take Tylenol altering with Motrin for fever or pain. I believe he likely has a viral upper respiratory infection causing his symptoms. Departure Diagnosis: Primary Impression: URI (upper respiratory infection) URI type: unspecified URI Qualified Codes: J06.9 - Acute upper respiratory infection, unspecified Additional Impressions: Fever Fever type: unspecified Qualified Codes: R50.9 - Fever, unspecified Chest pain Chest pain type: unspecified Qualified Codes: R07.9 - Chest pain, unspecified Condition: Fair Patient Instructions: Chest Pain, Uncertain Cause, Uri, Viral, No Abx (Adult) Referrals: Dr. Ley Additional Instructions: Call your primary care doctor TOMORROW for an appointment during the next 1-2 days.See the doctor sooner or return here if your condition worsens before your appointment time. JIMMY MEREDITH MD Jun 27, 2019 16:19
[2019-06-27 16:27] VITALS: BP 120/78; PULSE 89; RESP 18
== END 2019-06-27 16:32 | disposition home or self-care (01) ==
LOC: E/R 13:48
DX: R07.9 Chest pain, unspecified (principal); J06.9 Acute upper respiratory infection, unspecified
CPT/HCPCS: 36415; 71045; 80048; 80076; 81001; 83605; 83690; 84484; 85025; 85378; 85610; 85730; 87040; 87086; 93005; J7030; Z7502; Z7610; 81003